=== PATIENT | male | born 1940 | race Caucasian/White ===

== ENCOUNTER 2024-10-29 10:30 | Emergency (ER) | payer MEDICARE, OTHER, SELFPAY ==
[2024-10-29 10:59] VITALS: BP 177/104; PULSE 63; RESP 16; TEMP 36.6; O2SAT 95; BMI 25.1
--- NOTE | 2024-10-29 11:03 | DI.RAD.S_ITS ---
PROCEDURE: XR WRIST LT MIN 3V INDICATIONS: fall, wrist pain/swelling TECHNIQUE: 4 views of the wrist were acquired. COMPARISON: None. FINDINGS: Bones: No acute osseous fracture or dislocation is seen. Chronic posttraumatic deformity of the distal radius with dorsal tilting of the distal articular surface and positive ulnar variance. Chronic ununited ulnar styloid fracture. Mild chronic posttraumatic deformity of the 5th metacarpal. Moderate to severe degenerative changes throughout the radial aspect of the wrist. Soft tissues: No suspicious soft tissue calcifications. Soft tissue edema surrounds the wrist. IMPRESSION: 1. No acute osseous abnormality. If there is continued clinical concern or persistent symptoms, repeat radiographs or cross-sectional imaging (e.g. CT, MRI) may be helpful for further evaluation. 2. Chronic posttraumatic findings. 3. Moderate to severe osteoarthrosis. Approved by: Hair Nunes M.D. on 10/29/2024 at 10:47
[2024-10-29 12:57] VITALS: PULSE 70; RESP 16; O2SAT 96
--- NOTE | 2024-10-29 13:03 | PC.NURSE ---
1250 patient and verbalize understanding of L Wrist Splint & shoulder immobilizer use.
--- NOTE | 2024-11-05 18:27 | ED_ITS ---
HPI - Extremity Injury (Upper) <Jada Molina PA-C - Last Filed: 11/05/24 18:33> General Chief Complaint: Extremity Injury, Upper Stated Complaint: Left wrist pain, fall 10/28 Time Seen by Provider: 10/29/24 11:48 History of Present Illness HPI narrative: 84-year-old male presents to the ED status post a FOOSH injury sustained 3 days prior to arrival. Patient is complaining of left wrist and forearm pain. Patient has a make shift splint. The fall was from a trip and fall accident when he tripped over a rope in his garage. Patient also struck the front forehead, but very mildly so. Patient is not on thinners. No loss of consciousness. No headaches, changes in vision, lightheadedness, dizziness, syncope, chest pain, shortness of breath, nausea, vomiting. No numbness, tingling, weakness. Related Data Home Medications Medication Instructions Recorded Confirmed azelastine 137 mcg (0.1 %) nasal 2 spray intranasal BID 11/03/21 11/02/24 spray cyanocobalamin (vitamin B-12) 1,000 mcg IM .Q14 DAYS 11/03/21 11/02/24 1,000 mcg/mL injection solution diclofenac sodium 1 % topical gel 2 g topical QID 11/03/21 11/02/24 doxepin 10 mg capsule 10 mg PO BEDTIME 11/03/21 11/02/24 fluticasone propionate 50 2 spray intranasal BID 11/03/21 11/02/24 mcg/actuation nasal spray,suspension meprobamate 400 mg tablet 600 mg PO BEDTIME 11/03/21 11/02/24 metoprolol succinate 25 mg 12.5 mg PO BID 11/03/21 11/02/24 tablet,extended release 24 hr polyethylene glycol 3350 17 17 g PO DAILY 11/03/21 11/02/24 gram/dose oral powder pravastatin 40 mg tablet 40 mg PO DAILY 11/03/21 11/02/24 fluorouracil 5 % topical cream applic topical 11/02/24 11/02/24 hydrocodone 10 mg-acetaminophen tab PO 11/02/24 11/02/24 325 mg tablet Allergies Allergy/AdvReac Type Severity Reaction Status Date / Time NSAIDS (Non-Steroidal Allergy Mild Verified 11/02/24 08:17 Anti-Inflamma [NSAIDS (NON-STEROIDAL ANTI-INFLAMMA] Review of Systems <Jada Molina PA-C - Last Filed: 11/05/24 18:33> Constitutional Constitutional: Denies chills, Denies fatigue, Denies fever(s), Denies frequent falls, Denies lethargy and Denies weakness Eyes Eyes: Denies change in vision, Denies eye discharge, Denies irritation and Denies loss of vision ENT Ears, Nose, Mouth, and Throat: Denies change in voice, Denies dizziness, Denies neck pain, Denies sore throat and Denies throat swelling Cardiovascular Cardiovascular: Denies chest pain, Denies irregular heart rhythm, Denies lightheadedness, Denies palpitations, Denies dyspnea, Denies dyspnea on exertion and Denies orthopnea Respiratory Respiratory: Denies cough, Denies dyspnea, Denies dyspnea on exertion and Denies wheezing Gastrointestinal Gastrointestinal: Denies abdominal pain, Denies change in bowel habits, Denies diarrhea, Denies nausea and Denies vomiting Musculoskeletal Musculoskeletal: Denies neck pain and Denies numbness Comments: Left wrist and forearm pain Integumentary/Breasts Skin/Breast: Denies pruritus, Denies erythema, Denies rash and Denies wounds Neurologic Neurologic: Denies behavioral changes, Denies confusion, Denies dizziness, Denies frequent falls, Denies loss of vision, Denies numbness and Denies weakness Psychiatric Psychiatric: Denies anxiety, Denies behavioral changes, Denies confusion, Denies depression, Denies homicidal ideation and Denies suicidal ideation Endocrine Endocrine: Denies fatigue, Denies flushing and Denies palpitations Hematologic/Lymphatic Hematologic/Lymphatic: Denies easy bruising Allergic/Immunologic Allergic/Immunologic: Denies urticaria, Denies throat swelling and Denies wheezi ng Patient History <Jada Molina PA-C - Last Filed: 11/05/24 18:33> Medical History History of nonmelanoma skin cancer Non-recurrent bilateral inguinal hernia without obstruction or gangrene Adenomatous colon polyp Surgical History Hx of CABG S/P total knee arthroplasty Exam <Jada Molina PA-C - Last Filed: 11/05/24 18:33> Narrative Exam Narrative: Const General:?cooperative, healthy appearing and comfortable [facility] Head:?normal to inspection Ears:?hearing grossly normal bilaterally Nose:?external nose normal Face and sinus:?normal facial exam and sinuses nontender Mouth:?oral mucosae normal Throat:?posterior oropharynx normal Eyes General:?appearance normal, both eyes and all related structures Neck Neck:?normal visual inspection and no lymphadenopathy noted Resp Effort & Inspection:?normal respiratory effort Auscultation:?clear to auscultation bilaterally Cardio Rate:?regular rate Rhythm:?regular rhythm Musculoskeletal Swelling, tenderness to palpation of the left wrist and forearm. Neurovascularly intact. Neuro General:?patient alert, patient awake and patient oriented x3 Initial Vital Signs Initial Vital Signs: Vital Signs Temperature 97.8 F 10/29/24 10:59 Pulse Rate 63 10/29/24 10:59 Respiratory Rate 16 10/29/24 10:59 Blood Pressure 177/104 H 10/29/24 10:59 Pulse Oximetry 95 10/29/24 10:59 Oxygen Delivery Method Room Air 10/29/24 10:59 <Yoan Jeffrey MD - Last Filed: 11/05/24 23:56> Initial Vital Signs Initial Vital Signs: Vital Signs Temperature 97.8 F 10/29/24 10:59 Pulse Rate 63 10/29/24 10:59 Respiratory Rate 16 10/29/24 10:59 Blood Pressure 177/104 H 10/29/24 10:59 Pulse Oximetry 95 10/29/24 10:59 Oxygen Delivery Method Room Air 10/29/24 10:59 [facility] - Extremity Injury (Upper) <Jada Molina PA-C - Last Filed: 11/05/24 18:33> [facility] Narrative Medical decision making narrative: 84-year-old male presents to the ED status post a FOOSH injury sustained 3 days prior to arrival. Patient is complaining of left wrist and forearm pain. X-ray was obtained which shows no acute osseous abnormality. Patient declined CT scan of the head, also reassuring since patient's injury was 3 days ago. Recommend patient continue to take his pain medications that he takes for back pain. Wrist splint and sling were applied applied. Recommend follow-up with PCP as soon as possible. ED return precautions discussed with patient. Patient verbalized understanding. Medical records reviewed: Yes Discharge Plan Departure Patient Disposition: Home Clinical Impression: Left wrist sprain Qualifiers: Encounter type: initial encounter Wrist sprain location: unspecified location Qualified Code(s): S63.502A - Unspecified sprain of left wrist, initial encounter Instructions: DI for Wrist Sprain Activity Restrictions/Additional Instructions: You were evaluated in the emergency department for a left wrist injury. The x- ray did not show any fractures or dislocations. It appears that your symptoms are due to a musculoskeletal sprain/strain of the wrist. You are being fitted with a wrist splint and sling to wear for the next several days. It is recommended to rest the wrist, apply heat, continue wearing the splint and sling. You may continue taking the [place] that you take for the back pain. Please follow-up with your PCP as soon as possible. Return to the ED if you have worsening symptoms. Prescriptions: No Action doxepin 10 mg capsule 10 mg PO BEDTIME Rx Instructions: Take 1 capsule (10 mg) by mouth at bedtime as needed for sleep.Oneida Caldwell MD; REFILLS 11 meprobamate 400 mg tablet 600 mg PO BEDTIME Rx Instructions: TAKE 1 & 1/2 (ONE & ONE-HALF) TABLETS BY MOUTH NIGHTLYOneida Caldwell MD; REFILL 2 diclofenac sodium 1 % gel 2 g topical QID Rx Instructions: Apply 2 g topically 4 times a day as needed for moderate pain. Apply to left ankle. Corbin Walsh MD; REFILL 2 cyanocobalamin (vitamin B-12) 1,000 mcg/mL solution 1,000 mcg IM .Q14 DAYS Rx Instructions: INJECT 1 ML EVERY 14 DAYS; Oneida Caldwell MD REFILL 1 metoprolol succinate 25 mg tablet extended release 24 hr 12.5 mg PO BID Rx Instructions: Take 0.5 tablets (12.5 mg) by mouth 2 times a day.Oneida Caldwell MD pravastatin 40 mg tablet 40 mg PO DAILY Rx Instructions: Take 1 tablet (40 mg) by mouth daily.Oneida Caldwell MD; REFILL 4 fluticasone propionate 50 mcg/actuation spray,suspension 2 spray intranasal BID Rx Instructions: [place] 2 sprays into each nostril 2 times a day.Gustavo Franklin ARNP; REFILL 6 azelastine 137 mcg (0.1 %) aerosol,spray 2 spray intranasal BID Rx Instructions: [place] 2 sprays into each nostril 2 times a day.Gustavo Franklin, [employer]ATOR; REFILL 6 polyethylene glycol 3350 17 gram/dose powder 17 g PO DAILY hydrocodone-acetaminophen 10-325 mg tablet PO fluorouracil 5 % cream topical Referrals: Bryant Mayen MD [Primary Care Provider] - Stand Alone Forms: Patient Portal/API/Survey ED Sign-out <Yoan Jeffrey MD - Last Filed: 11/05/24 23:56> Cosign ED Attending Cosignature Attestation: I was immediately available in the department for consultation. This documentation has been reviewed and I agree with assessment and plan. Supervised by Yoan Jeffrey MD
== END 2024-10-29 12:57 | disposition home or self-care (01) ==
PROVIDERS: Emergency Provider Student in an Organized Health Care Education/Training Program; PCP Family Medicine
DX: S63.502A Unspecified sprain of left wrist, initial encounter (principal); W01.10XA Fall on same level from slipping, tripping and stumbling with subsequent striking against unspecified object, initial encounter
CPT/HCPCS: 29125; 29260; 73110; 99283

== ENCOUNTER → 2025-02-11 12:11 | Outpatient (CLI) | payer MEDICARE, OTHER, SELFPAY ==
--- NOTE | 2025-02-11 12:13 | DI.CT.S_ITS ---
PROCEDURE: CT CHEST W CON INDICATIONS: Multiple rib fractures, markedly elevated left hemidiaphragm TECHNIQUE: After the administration of intravenous contrast, 5 mm thick sections acquired from the pulmonary apices to the posterior costophrenic angles. 1 mm axial lung, 5 mm thick coronal and sagittal reformats and 7 mm axial MIP were acquired. For radiation dose reduction, the following was used: automated exposure control, adjustment of mA and/or kV according to patient size. COMPARISON: [facility], CT, CT CHEST ABDOMEN PELVIS WITH CONTRAST, 05/09/2023, 16:01. [facility] ([facility] CR, XR RIBS LT MIN 3V W CXR1V, 02/05/2025, 16:23. FINDINGS: Image quality: Diagnostic. Lungs and Pleura: Trachea and right peripheral airways are patent. There is consolidation with several air bronchograms along the caudal lingula and left lower lobe due to asymmetrically elevated left hemidiaphragm. No definite pneumothorax. 2 mm solid nodule in the anterior right upper lobe at a mid lung level, and a 6 mm subpleural nodule posterolateral right lower lobe, 3/185. There is a very small, posteriorly layering left pleural effusion. Lower Neck: No enlarged lymph nodes. Thyroid: Normal CT appearance. Axillae: No enlarged lymph nodes. Chest Wall: Along the left lateral chest wall beginning at the T8 vertebral body level, there is a lobulated, extrapleural/extraperitoneal mixed density mass measuring about 13 cm in greatest craniocaudal diameter and about 3.4 cm in maximal thickness. No other chest wall masses. Bones: Several left rib fractures. Anterolateral 3rd, and posterolateral and anterior lateral 4th through 10th ribs. Most are mildly displaced. The largest degree of displacement is seen in the posterolateral 4th and 5th ribs, just over 1/2 shaft width displacement. No visible vertebral body fractures. Multilevel disc degeneration. Degenerative change in both glenohumeral joints. Thoracic Vessels: Normal caliber. Aortic valvuloplasty. Mediastinum and [place]: No enlarged lymph nodes. No mediastinal hematoma. Heart: Heart size is normal. No pericardial effusion. CABG changes. Esophagus: No wall thickening. No hiatal hernia. Upper Abdomen: Post cholecystectomy and pneumobilia. No evidence of upper abdominal solid organ injury. No visible diaphragm defect. IMPRESSION: Multiple left-sided rib fractures, most of which are fractured in two places indicating flail chest. Left chest wall hematoma lateral and inferior. No significant mass effect on adjacent organs. Left lower lung atelectasis. No pneumothorax. Incidental right lower lung nodule. Not present previously. Follow-up in 6-12 months to begin to document stability. Dictated by: Carlie Oconnor M.D. on 02/11/2025 at 14:41 Approved by: Carlie Oconnor M.D. on 02/11/2025 at 15:09
[2025-02-11 12:38] LABS: Estimated Glomerular Filt Rate > 60 mL/min (>60)
== END ==
LOC: CT 12:12
PROVIDERS: PCP Family Medicine; Referring Provider Family Medicine; Visit Provider Family Medicine
DX: S22.42XA Multiple fractures of ribs, left side, initial encounter for closed fracture (principal); S20.212A Contusion of left front wall of thorax, initial encounter; J98.6 Disorders of diaphragm; J98.11 Atelectasis; R91.1 Solitary pulmonary nodule; X58.XXXA Exposure to other specified factors, initial encounter
CPT/HCPCS: 36415; 71260; 82565; Q9967